=== PATIENT | male | born 1990 | race Hispanic/Latino ===

== ENCOUNTER 2024-01-11 13:09 | Inpatient (IN) | payer OTHER ==
[2024-01-11] MEDS ORDERED: ONDANSETRON 4 MG/2 ML VIAL ONE (13:23)
[2024-01-11] MEDS ORDERED: CEFAZOLIN SODIUM 2 GM/VIAL ONE (13:24)
[2024-01-11] MEDS ORDERED: MORPHINE 4 MG/ML SYR ONE ×2 (13:24→15:17)
[2024-01-11] MEDS ORDERED: NA CHLORIDE 0.9% 100 ML ONE (13:24)
[2024-01-11] MEDS ORDERED: TDAP (DIPHTH,PERTUSS(ACELL),TET VAC) 0.5 ML VIAL IMVAC ONE (13:24)
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
[2024-01-11] MEDS ORDERED: LIDOCAINE 1% MPF 5 ML VIAL ONE (15:16)
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
--- NOTE | 2024-01-11 16:47 | RAD REPORT ---
EXAM DESCRIPTION: RADChest Single View01/11/2024 4:08 pm CLINICAL HISTORY: reeval ptx COMPARISON: Head C Spine Cap W Con dated 01/11/2024 TECHNIQUE: Portable AP view of the chest. FINDINGS: The lungs are clear. Mild left apical pneumothorax with pleural separation measuring 17 m m, probably stable. The cardiomediastinal contours are unremarkable. IMPRESSION: Likely stable left pneumothorax.
[2024-01-11] MEDS ORDERED: ACETAMINOPHEN 500 MG TAB PO PRN (18:35)
[2024-01-11 19:11] LABS: Absolute Lymphocytes (CBC) 1.1 K/uL (0.7-4.9); Hematocrit 38.1 % (39.6-49.0); Lymphocytes % 12.1 % (15.3-44.8); MCV 88.9 fL (80-100); MPV 7.9 fL (7.6-11.3); Platelets 194 thou/uL (152-406); RBC Red Blood Cell Count 4.29 M/uL (4.33-5.43)
[2024-01-11 19:23] LABS: Albumin 3.8 g/dL (3.4-5.0); Bilirubin Total 0.6 mg/dL (0.2-1.0); Potassium 3.9 mEq/L (3.5-5.1)
[2024-01-11] MEDS: MORPHINE 2 MG/ML SYR IV PRN (22:54)
[2024-01-12] VITALS: BMI 22.8
--- NOTE | 2024-01-12 08:11 | RAD REPORT ---
EXAM DESCRIPTION: RAD - Chest Pa And Lat (2 Views) - 01/12/2024 6:48 am CLINICAL HISTORY: pneumothorax COMPARISON: Chest Single View dated 01/11/2024 TECHNIQUE: PA and lateral views of the chest were obtained. FINDINGS: Stable small left apical pneumothorax. Left basilar atelectasis seen in the dependent post erior lung. Heart size is normal and central vasculature is within normal limits. No pleural effusion seen. No acute bony finding noted. IMPRESSION: Stable small left apical pneumothorax. Left basilar opacity suggesting atelectasis.
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
--- NOTE | 2024-01-12 18:03 | P.PN ---
Date of Service: 01/12/24 S: Patient complaining of pain all over O: Vital signs are stable A: Chest x-ray still shows residual pneumo P: Keep 1 more day, if pneumo is not bigger we will most likely discharge at that time.
[2024-01-13] MEDS: ONDANSETRON 4 MG/2 ML VIAL IV PRN (09:20)
--- NOTE | 2024-01-13 14:21 | RAD REPORT ---
EXAM DESCRIPTION: RADChest Pa And Lat (2 Views)01/13/2024 2:06 pm CLINICAL HISTORY: Pneumothorax COMPARISON: January 12, 2024 FINDINGS: Small left pneumothorax without significant change. Mild left basilar atelectasis unchanged Right lung appears clear. Heart is normal size
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
--- NOTE | 2024-01-14 07:17 | RAD REPORT ---
EXAM DESCRIPTION: RAD - Chest Pa And Lat (2 Views) - 01/14/2024 6:46 am CLINICAL HISTORY: left pneumo COMPARISON: Chest Pa And Lat (2 Views) dated 01/13/2024; Chest Pa And Lat (2 Views) dated 01/12/2024; Chest Single View dated 01/11/2024; Head C Spine Cap W Con dated 01/11/2024 FINDINGS: Lines: None. Lungs: No evidence of edema or pneumonia. Pleural: Unchanged small left-sided pneumothorax. Cardiac: The heart size is within normal limits. Mediastinum: Within normal limits. Bones: No acute fractures. Other: None IMPRESSION: Unchanged small left-sided pneumothorax. No other acute process identified .
[2024-01-14 09:53] VITALS: BP 121/66; TEMP 97.9
[2024-01-14 09:54] VITALS: O2SAT 98
--- NOTE | 2024-01-14 14:08 | P.PN ---
Date of Service: 01/14/24 S: No specific complaints, just overall soreness. O: Vital signs are stable, chest x-ray unchanged over the last 48 hours A: Patient is surgically stable P: Patient be discharged back to his facility. He can follow-up with the [facility] system. Obviously if he has any questions or problems we will except him back in transfer.
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
== END 2024-01-14 16:05 | DRG 983 ==
LOC: ER 13:09 → ERHOLD 16:27 → 4TH 17:54 → OBSVTOIN 01-13 15:11
PROVIDERS: ADMIT Surgery; ATTEND Surgery
PROC: 0JQ00ZZ Repair Scalp Subcutaneous Tissue and Fascia, Open Approach (ICD-10-PCS; principal; 2024-01-13)
DX: S27.0XXA Traumatic pneumothorax, initial encounter (principal); S01.01XA Laceration without foreign body of scalp, initial encounter; X99.9XXA Assault by unspecified sharp object, initial encounter; Y92.149 Unspecified place in prison as the place of occurrence of the external cause; Y93.9 Activity, unspecified; Y99.9 Unspecified external cause status
CPT/HCPCS: 36415; 70450; 70486; 71045; 71046; 71260; 72125; 74177; 76377; 80053; 85025; 90471; 94760; 96365; 96375; 99285; G0378; J2001; J2270; J2405; Q9967